=== PATIENT | female | born 1985 | race Caucasian/White ===

== ENCOUNTER → 2020-08-18 | Outpatient (CLI) | payer BC | LOC: M.RAD 10:01 | PROVIDERS: ATTEND Family Medicine | DX: Z12.31 Encounter for screening mammogram for malignant neoplasm of breast (principal) ==

== ENCOUNTER → 2020-09-15 | Outpatient (CLI) | payer BC | LOC: M.ULTRA 13:00 | PROVIDERS: ATTEND Family Medicine | DX: N64.4 Mastodynia (principal); N63.0 Unspecified lump in unspecified breast ==